=== PATIENT | male | born 2000 | race American Indian/Alaskan Native ===

== ENCOUNTER 2023-07-05 17:38 | Emergency (ER) | payer MEDICAID, OTHER ==
[2023-07-05] MEDS ORDERED: Lidocaine 5% 700 MG Patch TOP ONE (17:54)
[2023-07-05] MEDS ORDERED: Ketorolac 30 MG/ML SDV IM ONE (17:54)
== END 2023-07-05 18:39 | disposition home or self-care (01) ==
LOC: DL.ED 17:38
DX: R07.81 Pleurodynia (principal); F17.210 Nicotine dependence, cigarettes, uncomplicated; W01.0XXA Fall on same level from slipping, tripping and stumbling without subsequent striking against object, initial encounter
CPT/HCPCS: 71101-LT; 96372; 99282; 99283; A9270-GY; J1885

== ENCOUNTER 2025-03-11 12:03 | Emergency (ER) | payer SELFPAY | END 2025-03-11 12:59 | disposition home or self-care (01) | LOC: DL.ED 12:03 | DX: M99.18 Subluxation complex (vertebral) of rib cage (principal) | CPT/HCPCS: 93005; 93010; 99283 ==